=== PATIENT | male | born 1970 | race Caucasian/White ===

== ENCOUNTER 2021-09-16 08:46 | Emergency (ER) | payer OTHER ==
[2021-09-16] MEDS ORDERED: Ketorolac Tromethamine 30 MG/ML VIAL ONE (10:25)
[2021-09-16] MEDS ORDERED: Lidocaine 5% Patch TD SCH (10:45)
[2021-09-16] MEDS ORDERED: Transdermal Patch Removal TOP SCH (22:45)
== END 2021-09-16 23:09 | disposition home or self-care (01) ==
LOC: CSHERS 08:46
DX: S30.0XXA Contusion of lower back and pelvis, initial encounter (principal); S06.9X9A Unspecified intracranial injury with loss of consciousness of unspecified duration, initial encounter; I10 Essential (primary) hypertension; E11.9 Type 2 diabetes mellitus without complications; E78.5 Hyperlipidemia, unspecified; E66.9 Obesity, unspecified; W01.0XXA Fall on same level from slipping, tripping and stumbling without subsequent striking against object, initial encounter
CPT/HCPCS: 70450; 72125; 72131; J1885

== ENCOUNTER 2021-11-16 09:50 | Emergency (ER) | payer OTHER | END 2021-11-16 10:47 | disposition home or self-care (01) | LOC: CSHERS 09:50 | DX: R06.00 Dyspnea, unspecified (principal); R05.9 Cough, unspecified; E11.9 Type 2 diabetes mellitus without complications; E78.5 Hyperlipidemia, unspecified; E66.9 Obesity, unspecified; I10 Essential (primary) hypertension | CPT/HCPCS: 71045 ==

== ENCOUNTER 2021-12-20 12:09 | Emergency (ER) | payer OTHER ==
[2021-12-20] MEDS ORDERED: Ketorolac Tromethamine 30 MG/ML VIAL ONE (13:22)
== END 2021-12-20 13:38 | disposition home or self-care (01) ==
LOC: CSHERS 12:09
DX: S43.401A Unspecified sprain of right shoulder joint, initial encounter (principal); E11.9 Type 2 diabetes mellitus without complications; E78.5 Hyperlipidemia, unspecified; I10 Essential (primary) hypertension; E66.9 Obesity, unspecified; X50.0XXA Overexertion from strenuous movement or load, initial encounter; Y92.89 Other specified places as the place of occurrence of the external cause; Y99.0 Civilian activity done for income or pay
CPT/HCPCS: 96372; J1885

== ENCOUNTER 2022-04-07 11:21 | Emergency (ER) | payer OTHER | END 2022-04-07 13:31 | disposition left against medical advice (07) | LOC: CSHERS 11:21 | DX: Z53.21 Procedure and treatment not carried out due to patient leaving prior to being seen by health care provider (principal) ==